=== PATIENT | male | born 1970 | race Caucasian/White ===

== ENCOUNTER 2020-12-02 08:17 | Emergency (ER) | payer MEDICAID, SELFPAY ==
--- NOTE | ~2020-12-02 | XR_ITS ---
EXAMINATION: XR finger 2nd LT min 2V INDICATION: Left second finger pain TECHNIQUE: Three views of the left second finger are obtained. COMPARISON: None available FINDINGS: Bone alignment is normal. There is no fracture. There is soft tissue swelling of the second finger. 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 IMPRESSION: 1. No acute osseous abnormality. Reviewed, dictated and finalized at location A.
--- NOTE | ~2020-12-02 | XR_ITS ---
EXAMINATION: XR foot RT min 3V DATE: 12/02/2020 08:49 INDICATION: Right foot pain, initial encounter TECHNIQUE: Dorsoplantar, lateral, and 2 oblique views of the right foot were obtained. COMPARISON: None. FINDINGS: There is an acute, traumatic, comminuted fracture of the first proximal phalanx which exten ds to the interphalangeal joint. There is soft tissue swelling of the first toe. No additional acute osseous abnormality is identified. Posterior and plantar calcaneal enthesophytes are noted. There is mild osteoarthritis at the first metatarsophalangeal joint. IMPRESSION: 1. Acute comminuted fracture of the first proximal phalanx extending to the interphalangeal joint. Reviewed, dictated and finalized at location A. IMPRESSION: 1. Acute comminuted fracture of the first proximal phalanx extending to the int erphalangeal joint.
[2020-12-02 08:31] VITALS: BP 154/68; PULSE 67; RESP 16; TEMP 36.4; O2SAT 98
--- NOTE | 2020-12-02 08:37 | ED.LOWEXIN ---
HPI - Extremity Injury (Lower) General Chief Complaint: Extremity Injury, Lower Stated Complaint: right foot pain Time Seen by Provider: 12/02/20 09:00 Source: patient and RN notes reviewed Mode of arrival: ambulatory Limitations: no limitations History of Present Illness HPI Narrative: 50-year-old male presents concern for right foot pain, and pain in the first digit of the left hand. Reports on Thursday he slipped down a flight of stairs twisting his foot and tried to catch himself and then injuring his finger. He reports he has been using ice, ibuprofen, and Amandeep wrap without relief. He reports bruising to the dorsal aspect of the digits of the foot. He denies decrease in strength, sensation, range of motion. Reports he has been ambulating on the foot since the injury. MD complaint: foot injury Related Data Home Medications Medication Instructions Recorded Confirmed irbesartan 75 mg PO DAILY 12/02/20 12/02/20 omeprazole 20 mg PO DAILY 12/02/20 12/02/20 Allergies Allergy/AdvReac Type Severity Reaction Status Date / Time No Known Allergies Allergy Verified 12/02/20 09:03 Review of Systems Review of Systems: CONSTITUTIONAL: Denies malaise, chills, sweats, or fever. SKIN: Denies lacerations, abrasions. MUSCULOSKELETAL: Reports pain, swelling, bruising to the dorsal aspect of the right distal foot and digits, reports pain to the second digit of left hand NEUROLOGIC: Denies numbness, weakness All systems reviewed & are unremarkable except as noted in HPI and below PMFSH Comments At time of signature, agree with nursing past medical, surgical, social and family history. There is no relevant family history pertinent to the presenting complaint Exam Narrative: GENERAL: Well-appearing, well-nourished, and in no acute distress. HEAD: Normocephalic, atraumatic. EYES: PERRLA, conjunctivae clear NECK: Supple. CHEST: Speaks in full sentences. No respiratory distress. HEART: Regular rate and rhythm. Normal and equal peripheral pulses. EXTREMITIES: Right foot and digits have normal strength and sensation, normal range of motion. Mild dorsal distal edema, moderate ecchymosis to the dorsal aspect of the foot beneath digits 2, 3, 4. Normal sensation with sensitivity to light touch and pain. Tenderness the first digit. No open wounds, no skin tenting, no devitalized tissue or atrophy, no trophic changes, no obvious deformity, alignment normal, nearby joints and structures intact. Distal pulses palpable and equal bilaterally, skin warm, dry, pink. Capillary refill less than 3 seconds. Second digit of left hand has normal strength and sensation, normal range of motion. Mild medial edema, no ecchymosis. 5/5 strength with digit flexion and extension. Normal sensation with sensitivity to light touch and pain. Medial tenderness. No open wounds, no skin tenting, no devitalized tissue or atrophy, no trophic changes, no obvious deformity, alignment normal, nearby joints and structures intact. Distal pulses palpable and equal bilaterally, skin warm, dry, pink. Capillary refill less than 3 seconds. SKIN: Warm, dry, no rash. NEURO: Alert and oriented x3. PSYCH: Normal mood and affect Course Course Emergency Course: Patient is aware of diagnosis, understands and agrees to treatment plan. Anticipatory guidance given. Patient agrees to follow-up as directed and is aware of reasons to seek care at the emergency department. Portions of this record may have been created with voice recognition software Vital Signs Vital signs: Vital Signs Temperature 97.5 F L 12/02/20 08:31 Pulse Rate 67 12/02/20 08:31 Respiratory Rate 16 12/02/20 08:31 Blood Pressure 154/68 H 12/02/20 08:31 Pulse Oximetry 98 12/02/20 08:31 Temperature 97.5 F L 12/02/20 08:31 Pulse Rate 67 12/02/20 08:31 Respiratory Rate 16 12/02/20 08:31 Blood Pressure 154/68 H 12/02/20 08:31 Pulse Oximetry 98 12/02/20 08:31 Reviewed. MDM - Extremity I
== END 2020-12-02 09:45 | disposition home or self-care (01) ==
PROVIDERS: Emergency Provider Nurse Practitioner
DX: S92.411A Displaced fracture of proximal phalanx of right great toe, initial encounter for closed fracture (principal); W10.9XXA Fall (on) (from) unspecified stairs and steps, initial encounter; M19.042 Primary osteoarthritis, left hand; I10 Essential (primary) hypertension; G47.30 Sleep apnea, unspecified; K21.9 Gastro-esophageal reflux disease without esophagitis
CPT/HCPCS: 73140; 73630; 99204; G0463

== ENCOUNTER 2021-03-28 08:04 | Emergency (ER) | payer OTHER, SELFPAY ==
[2021-03-28 08:12] VITALS: BP 153/76; PULSE 56; RESP 16; TEMP 36.6; O2SAT 98
[2021-03-28 08:14] VITALS: BP 153/76; PULSE 56; RESP 16; TEMP 36.6; O2SAT 98
--- NOTE | 2021-03-28 08:14 | ED.DENTAL ---
HPI - Dental/Oral General Chief complaint: Dental/Oral Stated complaint: tooth ache Time Seen by Provider: 03/28/21 08:14 Source: patient Mode of arrival: ambulatory Limitations: no limitations History of Present Illness HPI Narrative: 50 yo M presents with L upper dental pain. Has been seeing his dentist and PCP. Started on abx and ibuprofen but not helping pain. Called his PCP this AM and was told to go to urgent care for pain medication. afebrile. no significant facial swelling noted. All systems reviewed and negative except as noted above. Related Data Home Medications Medication Instructions Recorded Confirmed irbesartan 75 mg PO DAILY 12/02/20 03/28/21 omeprazole 20 mg PO DAILY 12/02/20 03/28/21 amoxicillin-pot clavulanate 1 tablet PO BID 03/28/21 03/28/21 clonazepam 2 mg PO DAILY 03/28/21 03/28/21 Allergies Allergy/AdvReac Type Severity Reaction Status Date / Time No Known Allergies Allergy Verified 03/28/21 08:24 Review of Systems Review of Systems: CONSTITUTIONAL: Denies fever, chills, or sweats. EYES: Denies visual changes, redness, or discharge. ENT: Denies rhinorrhea, congestion, sore throat. L upper dental pain CARDIOVASCULAR: Denies chest pain, palpitations, or edema. RESPIRATORY: Denies cough or dyspnea. GASTROINTESTINAL: Denies abdominal pain, nausea, vomiting, or diarrhea. GENITOURINARY: Denies dysuria or hematuria. SKIN: Denies rash or itching. MUSCULOSKELETAL: Denies back pain, joint pain, or myalgia. NEUROLOGIC: Denies headache, numbness, or weakness. PSYCHIATRIC: Denies anxiety or depression. All other systems reviewed are negative, except as documented in HPI. 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 There is no relevant family history pertinent to the presenting complaint. Exam Const: General: cooperative, healthy appearing, no acute distress, alert and awake Nutritional Appearance: obese HENMT: Head: normocephalic Teeth and gingiva: caries and poor dentition Teeth image: 1. tooth #14 and #15 broken down to gum level. decayed. no significant swelling. 2. Eyes: General: appearance normal, both eyes and all related structures Neck: Neck: normal visual inspection, full ROM and no lymphadenopathy Resp: Effort & Inspection: normal respiratory effort and able to speak in complete sentences Cardio: Rate: regular rate Skin: General skin exam: normal color and no rashes or lesions noted Neuro: General: oriented to person, oriented to place and oriented to time Extrem: General: full ROM Psych: Appearance: grossly normal and well kempt Course Course Level of Care: Express Care Visit Vital Signs Vital signs: Vital Signs Temperature 36.6 C 03/28/21 08:12 Pulse Rate 56 L 03/28/21 08:12 Respiratory Rate 16 03/28/21 08:12 Blood Pressure 153/76 H 03/28/21 08:12 Pulse Oximetry 98 03/28/21 08:12 Temperature 36.6 C 03/28/21 08:14 Pulse Rate 56 L 03/28/21 08:14 Respiratory Rate 16 03/28/21 08:14 Blood Pressure 153/76 H 03/28/21 08:14 Pulse Oximetry 98 03/28/21 08:14 MDM - Dental/Oral MDM Narrative Medical decision making narrative: Patients pain and complaint coupled with physical findings are consistant with dent
== END 2021-03-28 08:40 | disposition home or self-care (01) ==
PROVIDERS: Emergency Provider Nurse Practitioner Family; PCP Nurse Practitioner Adult Health
DX: K08.89 Other specified disorders of teeth and supporting structures (principal); I10 Essential (primary) hypertension; G47.30 Sleep apnea, unspecified
CPT/HCPCS: 99213; G0463

== ENCOUNTER 2021-06-04 11:13 | Emergency (ER) | payer OTHER, SELFPAY ==
--- NOTE | 2021-06-04 11:16 | ED.BACK ---
HPI - Back Pain/Injury General Chief Complaint: Back Pain/Injury Stated Complaint: Back Pain Time Seen by Provider: 06/04/21 11:30 Source: patient, RN notes reviewed and old records reviewed Mode of arrival: ambulatory Limitations: no limitations History of Present Illness HPI Narrative: 50-year-old male presents to the [facility] with complaints of left lower back pain since he tripped and fell backwards onto his butt. Has no midline tenderness. No saddle anesthesia. No numbness or tingling in extremities. Tenderness to the left lower back. Pain is worse with change of position. MD elicited complaint: back pain Pertinent past history: prior back pain Related Data Home Medications Medication Instructions Recorded Confirmed irbesartan 75 mg PO DAILY 12/02/20 03/28/21 omeprazole 20 mg PO DAILY 12/02/20 03/28/21 clonazepam 2 mg PO DAILY 03/28/21 03/28/21 meloxicam 06/04/21 Allergies Allergy/AdvReac Type Severity Reaction Status Date / Time No Known Allergies Allergy Verified 06/04/21 11:17 Review of Systems Review of Systems: All systems reviewed & are unremarkable except as noted in HPI and below Constitutional: Constitutional: Reports no additional constitutional complaints, Denies fatigue and Denies weakness Eyes: Eyes: Reports no additional eye complaints ENT: Reports system reviewed and no additional complaints, except as documented Cardiovascular: Cardiovascular: Reports no additional cardiovascular complaints and Denies chest pain Respiratory: Respiratory: Reports no additional respiratory complaints, Denies cough and Denies dyspnea Gastrointestinal: Gastrointestinal: Reports no additional gastrointestinal complaints, Denies abdominal pain, Denies nausea and Denies vomiting Genitourinary: Genitourinary: Denies urinary incontinence Musculoskeletal: Musculoskeletal: Reports as per HPI, Reports back pain, Denies muscle cramps, Denies muscle weakness and Denies numbness Integumentary/Breasts: Skin/Breast: Reports system reviewed and no additional complaints, except as docu Neurologic: Reports system reviewed and no additional complaints, except as documented, Denies focal weakness, Denies numbness and Denies weakness Psychiatric: Psychiatric: Reports no additional psychiatric complaints Allergic/Immunologic: Allergic/Immunologic: Reports no additional allergic/immunologic complaints PMFSH Past Medical History Medical History HTN (hypertension) Kidney stone 2019 Sleep apnea Sleep disorder Surgical History Surgical History History of cholecystectomy 2014 Family History Family History Other Diabetes mellitus Hypertension Social History Social History Alcohol intake: never 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 There is no relevant family history pertinent to the patient complaint. Exam Const: General: healthy appearing, no acute distress and alert Nutritional Appearance: well nourished Orientation/consciousness: patient oriented x3 Limitations: no limitations HENMT: Head: normal to inspection Eyes: Pupils: Equal, round and reactive pupils present Neck: Neck: normal visual inspection, no lymphadenopathy and no meningeal signs Chest: Chest palpation & inspection: normal inspection of the chest Resp: Effort & Inspection: normal respiratory effort and no use of accessory muscles Auscultation: clear to auscultation bilaterally, no crackles, no rales, no rhonchi and no wheezes Cardio: Rate: regular rate Rhythm: regular rhythm GI:
[2021-06-04 11:21] VITALS: BP 148/84; PULSE 62; RESP 16; TEMP 36.3; O2SAT 100
== END 2021-06-04 11:38 | disposition home or self-care (01) ==
PROVIDERS: Emergency Provider Nurse Practitioner; PCP Nurse Practitioner Adult Health
DX: M54.16 Radiculopathy, lumbar region (principal); S39.012A Strain of muscle, fascia and tendon of lower back, initial encounter; W01.0XXA Fall on same level from slipping, tripping and stumbling without subsequent striking against object, initial encounter; I10 Essential (primary) hypertension; G47.30 Sleep apnea, unspecified
CPT/HCPCS: 99213; G0463

== ENCOUNTER 2021-11-14 08:45 | Outpatient (RCR) | payer OTHER, SELFPAY | END 2021-12-09 08:07 | disposition home or self-care (01) | LOC: ANHDMC 08:45 | PROVIDERS: PCP Nurse Practitioner Adult Health; Visit Provider Nurse Practitioner Adult Health | DX: E11.65 Type 2 diabetes mellitus with hyperglycemia (principal); Z71.89 Other specified counseling | CPT/HCPCS: G0108 ==

== ENCOUNTER 2022-03-12 11:04 | Outpatient (RCR) | payer OTHER, SELFPAY | END 2022-05-27 12:08 | disposition home or self-care (01) | LOC: ANHDMC 11:04 | PROVIDERS: PCP Nurse Practitioner Family; Visit Provider Nurse Practitioner Family | DX: E11.65 Type 2 diabetes mellitus with hyperglycemia (principal); Z71.89 Other specified counseling | CPT/HCPCS: 99199; G0108 ==

== ENCOUNTER 2022-04-21 09:32 | Emergency (ER) | payer OTHER, SELFPAY ==
[2022-04-21] VITALS (9 sets, daily range): BP systolic 123–166; BP diastolic 67–87; PULSE 76–106; RESP 15–23; TEMP 37.3; O2SAT 97–98
--- NOTE | ~2022-04-21 | CT_ITS ---
EXAMINATION: CTA chest PE protocol DATE: 04/21/2022 14:50 INDICATION: Shortness of breath. Chest pain. TECHNIQUE: Computed tomography angiography (CTA) of the chest was performed with 100 mL Omnipaque-350 intravenous contrast timed to evaluate the pulmonary arteries. Coronal maximum intensity projection 3D-reconstructions were created by the technologist. Automated exposure control and iterative reconst ruction technique were employed. The dose-length product was 695.45 mGy-cm. COMPARISON: Chest 2 views 04/21/2022 FINDINGS: There are centrilobular nodules and tree-in-bud opacities in right lower lobe, consistent w ith pneumonia. No pleural effusion. The heart size is normal. No pericardial effusion. There is no pu lmonary embolus. There are changes of cholecystectomy. There are no pathologically enlarged lymph nod es. There is mild thoracic spondylosis. IMPRESSION: 1. No pulmonary embolus. 2. Right lower lobe pneumonia. Reviewed, dictated and finalized at location A.
--- NOTE | ~2022-04-21 | XR_ITS ---
EXAMINATION: XR chest 2V DATE: 04/21/2022 10:31 INDICATION: Shortness of breath. Generalized chest pain. Fever. TECHNIQUE: Frontal and lateral views of the chest were obtained. COMPARISON: None. FINDINGS: The chest demonstrates clear lungs without pneumonia, pleural effusion, or pneumothorax. Th e heart size is normal. Surgical clips in the right upper quadrant are likely from cholecystectomy. IMPRESSION: 1. No acute cardiopulmonary disease. Reviewed, dictated and finalized at location A.
--- NOTE | 2022-04-21 09:43 | ECG_ITS ---
Measurements Intervals [place] Rate: 94 P: 34 ID: [id number] QRS: 28 QRSD: 80 T: 12 QT: 332 QTc: 417 Interpretive Statements SINUS RHYTHM POSSIBLE LEFT ATRIAL ENLARGEMENT BORDERLINE ECG NO PREVIOUS ECG AVAILABLE FOR COMPARISON Electronically Signed On 04-21-2022 10:11:56 CDT by Eloy Bronson D.O.
[2022-04-21 10:31] LABS: Alanine Aminotransferase 31 U/L (6-50); Albumin Level 4.6 g/dL (3.5-5.1); Alkaline Phosphatase 87 U/L (38-126); Anion Gap 7 mmol/L (8-16); Aspartate Amino Transferase 27 U/L (17-59); Bilirubin,Total 1.3 mg/dL (0.2-1.3); Blood Urea Nitrogen 12 mg/dL (9-20); Carbon Dioxide 25 mmol/L (22-30); Chloride 102 mmol/L (98-107); Estimated Glomerular Filt Rate 58; Glucose 109 mg/dL (65-110); Potassium 3.9 mmol/L (3.4-5.0); Sodium 134 mmol/L (137-145)
[2022-04-21 10:48] LABS: Basophils Percent Auto 0.3 % (0.2-1.2); Eosinophils Absolute Auto 0.1 K/mm3 (0-0.3); Eosinophils Percent Auto 1.9 % (0-4.4); Hematocrit 42.9 % (42.0-52.0); Hemoglobin 15.2 g/dL (14.0-18.0); Immature Granulocyte Absolute 0.02 K/mm3 (0.00-0.031); Immature Granulocyte Percent A 0.3 % (0-0.5); Immature Platelet Fraction Pct 7.3 % (0.9-11.2); Lymphocytes Absolute Auto 1.43 K/mm3 (0.9-3.2); Lymphocytes Percent Auto 20.4 % (18.3-44.2); Mean Corpuscular HGB Conc 35.4 g/dl (32-36); Mean Corpuscular Hemoglobin 30.8 pg (26-34); Mean Corpuscular Volume 86.8 fl (80-100); Mean Platelet Volume 10.8 fl (7.4-10.4); Monocytes Absolute Auto 0.6 K/mm3 (0.1-0.6); Monocytes Percent Auto 7.9 % (2.6-8.5); Neutrophils Absolute Auto 4.9 K/mm3 (1.3-6.7); Neutrophils Percent Auto 69.2 % (45.5-73.1); Platelet Count Result 113 k/mm3 (150-375); Red Blood Count 4.94 M/mm3 (4.6-6.20); Red Cell Distribution Width 13.9 % (11.5-14.5)
[2022-04-21 10:57] LABS: Influenza A QL RT-PCR Negative (Negative); Influenza B QL RT-PCR Negative (Negative); RSV RNA, RT-PCR Negative (Negative); SARS-CoV-2 RNA PCR Negative
[2022-04-21 11:09] LABS: NT Pro B Type Natriuretic Pept 41 pg/mL (19.9-100)
--- NOTE | 2022-04-21 11:58 | ED.GENADULT ---
HPI - General Adult General Chief complaint: Shortness of Breath/Dyspnea Stated complaint: SOB Time Seen by Provider: 04/21/22 09:38 History of Present Illness HPI narrative: 51-year-old male presented to the emergency department for evaluation of worsening cough shortness of breath since Thursday night. Patient states symptoms did worsen over the course of the day on Thursday. Patient reports he also has had subjective fever and migraine. Patient does have history of type 2 diabetes. Patient denies any cardiac history. Related Data Home Medications Medication Instructions Recorded Confirmed irbesartan 75 mg tablet 75 mg PO DAILY 12/02/20 03/28/21 omeprazole 20 mg tablet,delayed 20 mg PO DAILY 12/02/20 03/28/21 release clonazepam 2 mg tablet 2 mg PO DAILY 03/28/21 03/28/21 meloxicam 15 mg tablet 06/04/21 ibuprofen 600 mg tablet 800 mg PO TID PRN pain 04/21/22 metformin 500 mg tablet,extended mg PO 04/21/22 release 24 hr Allergies Allergy/AdvReac Type Severity Reaction Status Date / Time No Known Allergies Allergy Verified 06/04/21 11:17 Review of Systems Review of Systems: CONSTITUTIONAL: Denies fever, chills, or sweats. EYES: Denies visual changes, redness, or discharge. ENT: Denies rhinorrhea, congestion, sore throat, or otalgia. CARDIOVASCULAR: Denies chest pain, palpitations, or edema. RESPIRATORY: See HPI GASTROINTESTINAL: Denies abdominal pain, nausea, vomiting, or diarrhea. GENITOURINARY: Denies dysuria or hematuria. SKIN: Denies rash or itching. MUSCULOSKELETAL: Denies back pain, joint pain, or myalgia. NEUROLOGIC: Denies headache, numbness, or weakness. 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 HEAD: normocephalic, atraumatic. EYES: PERRLA/EOMI, conjunctivae clear. NOSE: Normal no drainage THROAT: Pharynx clear, no exudate. NECK: Supple. No adenopathy, no masses. RESPIRATORY: Airway patent, respirations nonlabored. Expiratory wheeze CARDIOVASCULAR: Regular rate and rhythm without murmurs rubs or gallops. ABDOMINAL: Soft, nontender, nondistended, normal bowel sounds MUSCULOSKELETAL: Moves all extremities. Strength/ROM intact, No edema, No calf tenderness. NEURO: Alert. Cranial nerves II through XII intact. SKIN: Warm, dry. Normal Color Course Course Emergency Course: 51-year-old male presented emergency department for evaluation of cough and congestion. Patient was afebrile with no leukocytosis. Patient does have a productive cough. Patient's CMP was similar to his baseline and patient was negative for COVID and for RSV. D-dimer was ordered for evaluation of possible pulmonary embolism. CTA was negative for pulm embolism but did show evidence of a right lower lobe pneumonia. Patient was treated with a dose of azithromycin and Rocephin in the ED. Patient's vital signs are stable and patient will be discharged home on Augmentin and azithromycin. Patient will also be provided albuterol inhaler along with Tessalon Perles for cough. Patient was updated on the diagnosis and treatment plan. All question concerns were addressed. Vital Signs Vital signs: Vital Signs Temperature 99.1 F 04/21/22 09:37 Pulse Rate 91 04/21/22 09:37 Respiratory Ra
[2022-04-21] MEDS: ALBUTEROL SULFATE NEB 2.5 MG/3 ML INH 5 MG INHALATION (12:14)
[2022-04-21] MEDS: KETOROLAC 15 MG/ML VIAL (*BKC) IV PUSH (12:26)
--- NOTE | 2022-04-21 12:54 | PC.NURSE ---
Called lab 5 times to try to add on d-dimer at 1205, answered on the fifth try, at 1255, d-dimer still not added on.
[2022-04-21 13:55] LABS: D Dimer 0.65 ug/mL (<0.48)
[2022-04-21] MEDS: AZITHROMYCIN 250 MG TABLET 500 MG PO (16:30)
--- NOTE | 2022-04-21 16:31 | PC.NURSE ---
Patient states his antibiotic was burning while infusing. Spoke with Dr Martinez and he was able to switch it from IV to oral route of antibiotic.
== END 2022-04-21 16:38 | disposition home or self-care (01) ==
PROVIDERS: Emergency Provider Emergency Medicine; PCP Nurse Practitioner Family
DX: J18.9 Pneumonia, unspecified organism (principal); Z20.822 Contact with and (suspected) exposure to COVID-19; I10 Essential (primary) hypertension; G47.30 Sleep apnea, unspecified; Z87.442 Personal history of urinary calculi; R94.31 Abnormal electrocardiogram [ECG] [EKG]
CPT/HCPCS: 36415; 71046; 71275; 80053; 83880; 85025; 85055; 85380; 87637; 93005; 94640; 96365; 96367; 96375; 99284; A9270; J0131; J0456; J0696; J1885; Q9967

== ENCOUNTER 2024-09-12 09:05 | Emergency (ER) | payer BC, SELFPAY ==
--- NOTE | 2024-09-12 09:06 | ED_ITS ---
HPI - URI/Sore Throat General Chief Complaint: Upper Respiratory Infection Stated Complaint: lost of voice Time Seen by Provider: 09/12/24 09:06 Source: patient Mode of arrival: ambulatory Limitations: no limitations History of Present Illness HPI Narrative: Leonidas is a 54-year-old male patient presenting to the clinic today with complaints of cough, loss of voice, and nasal congestion. He reports symptoms started approximately 5 days ago. No fevers, chills, body aches. Denies any chest pain or shortness of breath. States when he blows his nose and coughs up phlegm it is green in color. No sore throat. He is a nonsmoker. Related Data Home Medications ?Medication ?Instructions ?Recorded ?Confirmed ?Last Taken ?Type irbesartan 75 mg tablet 75 mg PO DAILY 12/02/20 03/28/21 Unknown History clonazepam 2 mg tablet 2 mg PO DAILY 03/28/21 03/28/21 Unknown History meloxicam 15 mg tablet 06/04/21 Unknown History metformin 500 mg tablet,extended mg PO 04/21/22 Unknown History release 24 hr semaglutide 1 mg/dose (4 mg/3 mL) mg subcut 09/12/24 Unknown History subcutaneous pen injector (Ozempic) Allergies Allergy/AdvReac Type Severity Reaction Status Date / Time No Known Allergies Allergy Verified 09/12/24 09:24 Review of Systems Review of Systems: Pertinent positives per HPI. Patient denies any fever, chills, rash, headache, visual changes, dizziness, shortness of breath, chest pain, palpitations, nausea, vomiting, diarrhea, constipation, abdominal pain, or any urinary issues. 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 There is no relevant family history pertinent to the patient complaint. Exam Narrative: General: Well-developed, well nourished, in no apparent distress Head: Normocephalic, atraumatic Eyes: Pupils equally round and reactive to light bilaterally, EOM intact, sclera and conjunctive clear, no discharge, lids normal Ears: TMs intact and clear, ear canals ceruminous, no drainage, grossly hearing normal. Nose: Nares patent, clear nasal discharge, mild inflammation, no sinus tenderness. Mouth: Oral pharynx without lesions or masses, good dentition, MMM. Postnasal drip Neck: Supple, trachea midline, no enlargement of anterior or posterior cervical nodes, no thyroid masses or goiter palpable. Cardio: Regular rate and rhythm, s1 and s2 normal, no murmur appreciated. Resp: Clear to auscultation bilaterally, no rhonchi, rales, wheezing or rubs Course Course Emergency Course: Portions of this record may have been created with voice recognition software. Level of Care: Express Care Visit Vital Signs Vital signs: Vital Signs Temperature 36.5 C 09/12/24 09:22 Pulse Rate 65 09/12/24 09:22 Respiratory Rate 18 09/12/24 09:22 Blood Pressure 155/86 H 09/12/24 09:22 Pulse Oximetry 100 09/12/24 09:22 Oxygen Delivery Room Air 09/12/24 09:22 Temperature 36.5 C 09/12/24 09:22 Pulse Rate 65 09/12/24 09:22 Respiratory Rate 18 09/12/24 09:22 Blood Pressure 155/86 H 09/12/24 09:22 Pulse Oximetry 100 09/12/24 09:22 Oxygen Delivery Room Air 09/12/24 09:22 Vital signs reviewed MDM - URI/Sore Throat MDM Narrative Medical decision making narrative: At the time of visit patient is resting comfortably on the exam table. Patient appears to be nontoxic. Complaints of cough, loss of voice, and nasal congestion. He reports symptoms started approximately 5 days ago. No fevers, chills, body aches. Denies any chest pain or shortness of breath. States when he blows his nose and coughs up phlegm it is green in color. No sore throat. He is a nonsmoker. No known sick contacts. Lung sounds are clear and has clear nasal congestion. Plan: I suspect patient has URI/acute cough. Prescription for prednisone and Tessalon Perles was sent to the pharmacy. Supportive measures were discussed with the patient and they voiced understanding discharge instructions and agrees to treatment plan. Return precautions reviewed Differential Diagnosis Differential diagnosis: Likely upper respiratory infection, otitis media, sinusitis, viral infection, bronchitis, influenza, pharyngitis and other (Covid) Discharge Plan Discharge Clinical Impression: Acute cough URI (upper respiratory infection) Qualifiers: URI type: unspecified URI Qualified Code(s): J06.9 - Acute upper respiratory infection, unspecified Patient Disposition: Home Condition: Stable Instructions: Antibiotic Form, Cold Symptoms (ED), Acute Cough (ED) Additional Instructions: Take prescription medications only as prescribed-prednisone and Tessalon Perles Increase fluids and stay well hydrated Tylenol/motrin for pain/fever as per bottle directions Flonase 1 spray in each nare daily and OTC antihistamines such as Zyrtec or Claritin 10 mg daily Vicks vapor rub to open sinuses Sinus rinses for congestion Cepacol spray, cough drops, throat lozenges, warm tea with honey/lemon, gargle salt water to soothe throat BRAT diet for diarrhea Clear liquids x 24 hours then advance as tolerated for nausea/vomiting Go to the ED if you develop a worsening in your condition- high fever not controlled by Tylenol or Motrin, dehydration, weakness, lethargy, shortness of breath, or chest pain. Follow up with your PCP in 3-5 days if symptoms persist. Patient Language: Slovenian Prescriptions: New prednisone 20 mg tablet 40 mg PO DAILY 5 Days Qty: 10 0RF benzonatate 200 mg capsule 200 mg PO TID 7 Days Qty: 21 0RF No Action clonazepam 2 mg tablet 2 mg PO DAILY meloxicam 15 mg tablet Ozempic 1 mg/dose (4 mg/3 mL) pen injector SUBCUT irbesartan 75 mg Tablet 75 mg PO DAILY metformin 500 mg tablet extended release 24 hr PO Follow-up/Referrals: Ashley,Aspen Ramirez NP [Primary Care Provider] - Time of Disposition: 09:29 Quality NIHSS Nursing Documentation ED NIHSS nursing documentation: reviewed/agree
[2024-09-12 09:22] VITALS: BP 155/86; PULSE 65; RESP 18; TEMP 36.5; O2SAT 100
== END 2024-09-12 09:32 | disposition home or self-care (01) ==
PROVIDERS: Emergency Provider Nurse Practitioner Family; PCP Nurse Practitioner Family
DX: R05.1 Acute cough (principal); J06.9 Acute upper respiratory infection, unspecified; I10 Essential (primary) hypertension
CPT/HCPCS: 99213; G0463